=== PATIENT | female | born 1945 | race Two or more races ===

== ENCOUNTER 2021-03-18 19:46 | Emergency (ER) | payer MEDICARE, OTHER ==
[~2021-03-18] VITALS: Ht 162.6 cm; Wt 68.0 kg
--- NOTE | 2021-03-18 20:05 | NUR ---
LINE ESTABLISHED @ [facility]G BLOOD COLLECTED AND SENT TO LAB
--- NOTE | 2021-03-18 20:08 | NUR ---
EMT @ BEDSIDE FOR EKG
[2021-03-18 20:13] LABS: BASOPHILS % (AUTO) 0.6 % (0.0-2.0); EOSINOPHILS % (AUTO) 1.4 % (0.0-6.0); HEMATOCRIT 41 % (33-45); HEMOGLOBIN 13.9 g/dL (11.5-14.8); LYMPHOCYTES # (AUTO) 1.5 K/uL (0.8-4.8); LYMPHOCYTES % (AUTO) 22.5 % (20.0-44.0); MEAN CORPUSCULAR HGB CONC 34 g/dl (31.0-36.0); MEAN CORPUSCULAR VOLUME 88 fL (82-100); MONOCYTES # (AUTO) 0.5 K/uL (0.1-1.30); MONOCYTES % (AUTO) 6.7 % (2.0-12.0); NEUTROPHILS # (AUTO) 4.6 K/uL (1.8-8.9); NEUTROPHILS % (AUTO) 68.8 % (43.0-81.0); PLATELET COUNT (AUTO) 209 K/uL (150-450); RED BLOOD CELL COUNT(AUTO) 4.59 MIL/uL (4.0-5.2); WHITE BLOOD COUNT (AUTO) 6.7 K/uL (4.3-11.0)
[2021-03-18] MEDS ORDERED: hydrALAZINE HCL IV 20 MG VIAL ONE ×2 (20:20)
[2021-03-18 20:26] LABS: CALCIUM, SERUM 9.2 mg/dL (8.5-10.1); CARBON DIOXIDE 28 mmol/L (21-32); CHLORIDE 103 mmol/L (98-107); CREATININE 0.9 mg/dL (0.6-1.3); GLUCOSE 107 mg/dL (74-106); POTASSIUM 4.4 mmol/L (3.5-5.1); SODIUM SERUM 138 mmol/L (136-145); UREA NITROGEN, BLOOD 25 mg/dL (7-18)
[2021-03-18] MEDS ORDERED: hydrALAZINE HCL IV 20 MG VIAL IV ONE (20:30)
--- NOTE | 2021-03-18 20:30 | NUR ---
DAUGHTER [place] [id number] [phone]
[2021-03-18] MEDS ORDERED: HYDR100T27 PO (21:11)
[2021-03-18 21:38] VITALS: BP 150/89
--- NOTE | 2021-03-18 21:38 | NUR ---
Patient discharged to home in stable condition. Written and verbal after care instructions given. Patient verbalizes understanding of instruction. RX given
== END 2021-03-18 21:41 | disposition home or self-care (01) ==
LOC: ER 19:49
DX: I10 Essential (primary) hypertension (principal); Z63.4 Disappearance and death of family member; Z88.1 Allergy status to other antibiotic agents; Z88.8 Allergy status to other drugs, medicaments and biological substances
CPT/HCPCS: 36415; 71045; 80048; 84484; 85025; 93005; 96374; 99285; J0360 ×2